=== PATIENT | female | born 1970 | race Caucasian/White ===

== ENCOUNTER 2020-02-22 12:52 | Emergency (ER) | payer OTHER, SELFPAY ==
[2020-02-22 12:56] VITALS: BP 113/70; PULSE 93; RESP 16; TEMP 36.3; O2SAT 100
--- NOTE | 2020-02-22 14:05 | ED.EAR ---
HPI - Ear Problem General Chief complaint: Ear Stated complaint: ear pain Time Seen by Provider: 02/22/20 13:06 Source: patient Mode of arrival: ambulatory Limitations: no limitations History of Present Illness HPI Narrative: This is a 49 year old female that presents to the ER for right ear pain since this morning. Also reports history of allergies with some post-nasal drip. Reports history of ear infections in the past and this feels similar. Denies fever or drainage from the ear. Related Data Allergies Allergy/AdvReac Type Severity Reaction Status Date / Time No Known Allergies Allergy Verified 02/22/20 12:59 Review of Systems Review of Systems: Narrative: CONSTITUTIONAL: Denies fever ENT: Reports rhinorrhea and otalgia All systems reviewed & are unremarkable except as noted in HPI and below PMFSH Past Medical History Medical History (Updated 02/22/20 @ 14:10 by Ирина Nair PA-C) History of seasonal allergies Social History Social History (Updated 02/22/20 @ 14:08 by Ирина Nair PA-C) Smoking status: Never smoker Gender identity (if verbalized by the patient): Female Exam Narrative: Exam Narrative: GENERAL: Well-appearing, well-nourished, and in no acute distress. HEAD: Normocephalic, atraumatic. EYES: EOMI. ENT: Nares clear, no rhinorrhea or epistaxis. Mucous membranes moist. Oropharynx without tonsillar hypertrophy exudate or other lesions. Bilateral TMs pearly russo non-bulging. Bilateral external auditory canals are normal NECK: Supple. No adenopathy or masses. CHEST: Clear to auscultation. No respiratory distress. No wheezes rales or rhonchi HEART: Regular rate and rhythm. No murmur heard. Normal peripheral pulses. EXTREMITIES: Normal range of motion. No edema. SKIN: Warm, dry, no rash. NEURO: No focal deficits. Alert and oriented x3. PSYCH: Normal mood and affect Course Vital Signs Vital signs: Vital Signs Temperature 97.3 F L 02/22/20 12:56 Pulse Rate 93 02/22/20 12:56 Respiratory Rate 16 02/22/20 12:56 Blood Pressure 113/70 02/22/20 12:56 Pulse Oximetry 100 02/22/20 12:56 Temperature 97.3 F L 02/22/20 12:56 Pulse Rate 93 02/22/20 12:56 Respiratory Rate 16 02/22/20 12:56 Blood Pressure 113/70 02/22/20 12:56 Pulse Oximetry 100 02/22/20 12:56 Medical Decision Making MDM Narrative Medical decision making narrative: Patient presents the emergency department for right ear pain since this morning. She is afebrile and nontoxic-appearing. At this time the external auditory canal and TM are normal on the right. Patient reports history of ear infections and that this feels similar to when her symptoms begin. I told her I could prescribe an antibiotic and she could start it for any worsening symptoms. Patient is stable and felt appropriate for further outpatient evaluation. She was given warnings to return to the ER Vital Signs Vital Signs: Vital Signs Temperature 97.3 F L 02/22/20 12:56 Pulse Rate 93 02/22/20 12:56 Respiratory Rate 16 02/22/20 12:56 Blood Pressure 113/70 02/22/20 12:56 Pulse Oximetry 100 02/22/20 12:56 Temperature 97.3 F L 02/22/20 12:56 Pulse Rate 93 02/22/20 12:56 Respiratory Rate 16 02/22/20 12:56 Blood Pressure 113/70 02/22/20 12:56 Pulse Oximetry 100 02/22/20 12:56 Critical Care Time Critical Care Time Critical Care Time: No Discharge Plan Discharge Clinical Impression: Acute pain of right ear Patient Disposition: Home, Self-Care Condition: Stable Instructions: Antibiotic Form, Earache (ED) Additional Instructions: Return to the emergency department for fever, redness and swelling of your ear, or any other concerns Remain well-hydrated, get plenty of rest. Take Tylenol or Motrin [id number] for pain as needed. Flonase for nasal congestion. Zyrtec for runny nose. Lozenges or Chloraseptic spray for sore throat. You may start the antibiotic for worsening pain in
== END 2020-02-22 14:20 | disposition home or self-care (01) ==
PROVIDERS: Emergency Provider Emergency Medicine
DX: H92.01 Otalgia, right ear (principal)
CPT/HCPCS: 99283

== ENCOUNTER 2022-12-17 09:35 | Emergency (ER) | payer OTHER, SELFPAY ==
[2022-12-17 10:05] VITALS: BP 136/74; PULSE 77; RESP 18; TEMP 36.9; O2SAT 100
--- NOTE | 2022-12-17 10:28 | ED.URI ---
HPI - URI/Sore Throat General Chief Complaint: Ear Stated Complaint: rt earache Time Seen by Provider: 12/17/22 10:28 Source: patient, RN notes reviewed and old records reviewed Mode of arrival: ambulatory Limitations: no limitations History of Present Illness HPI Narrative: 52-year-old female presents to the [facility] with complaints of right ear pain for several weeks. States that she takes some vitamins daily, no other treatment prior to arrival. Has an appointment with a new primary care provider coming. Patient states pain has been feels like there is a swooshing in her ear. Reports she has ear done just wants to make sure it is not infected Onset (ago): week(s) Related Data Home Medications Medication Instructions Recorded Confirmed No Home Medications 12/17/22 12/17/22 Allergies Allergy/AdvReac Type Severity Reaction Status Date / Time No Known Allergies Allergy Verified 12/17/22 10:14 Review of Systems Review of Systems: All systems reviewed & are unremarkable except as noted in HPI and below Constitutional: Constitutional: Reports no additional constitutional complaints Eyes: Eyes: Reports no additional eye complaints ENT: Reports as per HPI and Reports otalgia (Right) Cardiovascular: Cardiovascular: Reports no additional cardiovascular complaints, Denies chest pain and Denies dyspnea Respiratory: Respiratory: Reports no additional respiratory complaints, Denies chest congestion, Denies cough and Denies dyspnea Gastrointestinal: Gastrointestinal: Reports no additional gastrointestinal complaints, Denies abdominal pain, Denies nausea and Denies vomiting Musculoskeletal: Musculoskeletal: Reports no additional musculoskeletal complaints Integumentary/Breasts: Skin/Breast: Reports system reviewed and no additional complaints, except as docu Neurologic: Reports system reviewed and no additional complaints, except as documented Psychiatric: Psychiatric: Reports no additional psychiatric complaints Allergic/Immunologic: Allergic/Immunologic: Reports no additional allergic/immunologic complaints PMFSH Past Medical History Medical History History of seasonal allergies Social History Social History Smoking status: Never smoker Gender identity (if verbalized by the patient): Female Comments At the time of my signature, I reviewed and agree with the nursing past medical, surgical, social, and family history. There is no relevant family history pertinent to the patient complaint. Exam Const: General: cooperative, healthy appearing, comfortable, no acute distress, well developed, alert and well nourished Nutritional Appearance: well nourished Orientation/consciousness: patient oriented x3 Limitations: no limitations HENMT: Head: normal to inspection Ears: hearing grossly normal bilaterally, external ears normal, EAC's normal and TM abnormal with fluid behind the TM bilateral (Clear); not bulging and not erythematous Face/Nose/Sinus: Normal external nose present, Normal nares present, Normal nasal mucous membranes and turbinates present and normal facial exam Face and sinus: normal facial exam Mouth: Yes Normal oral and palatal mucosa present, Yes lip normal and Yes moist mucous membranes Throat: posterior oropharynx normal and uvula midline Eyes: General: appearance normal, both eyes and all related structures Alignment and Position: alignment normal Periorbital: periorbital findings normal Pupils: Equal, round and reactive pupils present EOM: EOMs intact bilaterally Neck: Neck: normal visual inspection, full ROM, no lymphadenopathy and no meningeal signs Chest: Chest palpation & inspection: normal inspection of the chest Resp: Effort & Inspection: normal respiratory effort and able to speak in complete sentences Auscultation: clear to auscultation bilaterally, no crackles, no rales
== END 2022-12-17 10:40 | disposition home or self-care (01) ==
PROVIDERS: Emergency Provider Nurse Practitioner
DX: H65.01 Acute serous otitis media, right ear (principal)
CPT/HCPCS: 99211; G0463

== ENCOUNTER 2022-12-20 08:31 | Emergency (ER) | payer OTHER, SELFPAY ==
--- NOTE | 2022-12-20 08:40 | ED.EAR ---
HPI - Ear Problem General Chief complaint: Ear Stated complaint: Rt Ear Irritation Time Seen by Provider: 12/20/22 08:40 Source: patient Mode of arrival: ambulatory Limitations: no limitations History of Present Illness HPI Narrative: Iza is a 52-year-old female patient presenting to the clinic with complaints of right ear pressure/pain, decreased hearing, and clicking noises. She reports symptoms have been going on for 2 weeks. Was seen in the urgent care on Monday and was told that her ear was not infected and she has fluid behind her ear. The [employer] offered steriod pack at that time and she states she already had some steroids at home (3 days of low dose per patient) so no prescription was given at that time. Returns today stating that her hearing is getting worse and she is having some clicking noises in her right ear as well as pressure. She was concerned that it may now be infected. Has been having nasal congestion and suffers from allergies. No fever, chills, headaches, visual changes, or dizziness. Reports that she has been taking Claritin but declined taking Flonase Related Data Allergies Allergy/AdvReac Type Severity Reaction Status Date / Time No Known Allergies Allergy Verified 12/17/22 10:14 Review of Systems Review of Systems: Pertinent positives per HPI. Patient denies any fever, chills, rash, headache, visual changes, dizziness, cough, runny nose, sore throat, shortness of breath, chest pain, palpitations, nausea, vomiting, diarrhea, constipation, abdominal pain, or any urinary issues. PMFSH Past Medical History Medical History History of seasonal allergies Social History Social History Smoking status: Never smoker Gender identity (if verbalized by the patient): Female Comments At the time of my signature, I reviewed and agree with the nursing past medical, surgical, social, and family history. There is no relevant family history pertinent to the patient complaint. Exam Narrative: General: Well-developed, well nourished, in no apparent distress Head: Normocephalic, atraumatic Eyes: Pupils equally round and reactive to light bilaterally, EOM intact, sclera and conjunctive clear, no discharge, lids normal Ears: Left TMs intact and clear, right TM intact, mild bulging, congested with fluid noted behind the TM, ear canals clear, no drainage, grossly hearing normal. Nose: Nares patent, clear discharge, no inflammation, no sinus tenderness. Mouth: Oropharynx without lesions or masses, good dentition, MMM. Neck: Supple, trachea midline, no enlargement of anterior or posterior cervical nodes, no thyroid masses or goiter palpable. Cardio: Regular rate and rhythm, s1 and s2 normal, no murmur appreciated. Resp: Clear to auscultation bilaterally anteriorly and posteriorly, no rhonchi, rales, wheezing or rubs Course Course Emergency Course: Portions of this record may have been created with voice recognition software. Level of Care: Express Care Visit Vital Signs Vital signs: Vital signs reviewed Medical Decision Making MDM Narrative Medical decision making narrative: At the time of visit patient is resting comfortably on the exam table. I suspect patient has serous otitis with right eustachian tube dysfunction. Patient is requesting antibiotics and explained that her condition does not warrant antibiotics at this time and explained the risk and benefits of taking antibiotics when they are not needed. Patient voiced understanding. Will send in prescription for prednisone 40 mg daily x5 days. Also encouraged to use [id number] Flonase along with the [id number] antihistamine to help improve her symptoms. Supportive measures were discussed with the patient she voiced understanding discharge instructions and agrees to treatment plan. Differential Diagnosi
[2022-12-20 08:41] VITALS: BP 122/71; PULSE 74; RESP 16; TEMP 36.5; O2SAT 99
== END 2022-12-20 08:55 | disposition home or self-care (01) ==
PROVIDERS: Emergency Provider Nurse Practitioner Family
DX: H69.91 Unspecified Eustachian tube disorder, right ear (principal); H91.91 Unspecified hearing loss, right ear; H65.01 Acute serous otitis media, right ear
CPT/HCPCS: 99213; G0463

== ENCOUNTER 2024-01-26 13:16 | Outpatient (CLI) | payer OTHER, SELFPAY ==
--- NOTE | ~2024-01-26 | MM_ITS ---
EXAMINATION: MM screening patsy BI w rubin HISTORY: Screening TECHNIQUE: Craniocaudal and mediolateral oblique 3-D tomosynthesis images were obtained and synthetic 2-D images were generated. CAD analysis was submitted and interpreted. COMPARISON: No prior mammogram is available for comparison at this institution. BREAST PARENCHYMAL COMPOSITION: Dense: The breasts are extremely dense, which lowers the sensitivity of mammography. FINDINGS: There is no evidence of suspicious mass, calcification, or architectural distortion to sugg est malignancy in either breast. There has been no suspicious interval change. IMPRESSION: 1. No mammographic evidence of malignancy. 2. Recommend routine screening mammography in one year. BI-RADS Category 1: Negative Reviewed, dictated and finalized at location B.
== END 2024-01-26 13:17 | disposition home or self-care (01) ==
LOC: CHSIMG 13:18
DX: Z12.31 Encounter for screening mammogram for malignant neoplasm of breast (principal)
CPT/HCPCS: 77063; 77067

== ENCOUNTER 2025-04-11 02:28 | Emergency (ER) | payer OTHER, SELFPAY ==
[2025-04-11] VITALS (10 sets, daily range): BP systolic 113–137; BP diastolic 53–99; PULSE 76–109; RESP 15–22; TEMP 36.7–36.9; O2SAT 98–100
--- NOTE | ~2025-04-11 | CT_ITS ---
EXAMINATION: CT brain wo con DATE: 04/11/2025 06:19 INDICATION: Seizure TECHNIQUE: Computed tomography (CT) of the head was performed without intravenous contrast. The dose-length product was 681.00 mGy-cm. COMPARISON: None FINDINGS: No intraconal mass effect or hemorrhage. Calvarial structures appear intact. IMPRESSION: 1. No gross acute intracranial process. 2. With new onset or refractory seizure disorder, correlation with seizure protocol brain MRI recommended for optimal evaluation. Reviewed, dictated and finalized at location A. IMPRESSION: 1. No gross acute intracranial process. 2. With new onset or refractory seizure disorder, correlation with seizure prot ocol brain MRI recommended for optimal evaluation.
--- NOTE | ~2025-04-11 | CT_ITS ---
EXAM/PROCEDURE: CT facial & cervical spine wo HISTORY: small lac bridge nose; seizure COMPARISON: None available. TECHNIQUE: CT of the cervical spine and facial bones performed FINDINGS: No fracture lucency C1-C7. No traumatic malalignment. No significant hematoma or severe soft tissue swelling seen. The facial bones appear intact. IMPRESSION: No acute findings. No fracture lucency identified C1-C7 or in the facial bones. Reviewed, dictated and finalized at location A. 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
--- NOTE | 2025-04-11 02:14 | ECG_ITS ---
Test Date: 2025-04-11 02:23:11 Measurements Intervals [place] Rate: 98 P: 70 AK: 166 QRS: 66 QRSD: 83 T: 41 QT: 339 QTc: 435 Interpretive Statements SINUS RHYTHM MODERATE ST DEPRESSION [0.05+ mV ST DEPRESSION] ABNORMAL ECG No previous ECG available for comparison Electronically Signed On 04-11-2025 13:15:16 [employer] by Kal Huizar M.D.
[2025-04-11 02:22] LABS: Hematocrit 44.1 % (37.0-47.0); Hemoglobin 14.6 g/dL (12.0-15.0); Immature Granulocyte Percent A 0.1 % (0-0.5); Lymphocytes Absolute Auto 3.17 K/mm3 (0.9-3.2); Mean Corpuscular HGB Conc 33.1 g/dl (32-36); Mean Corpuscular Hemoglobin 30.7 pg (26-34); Mean Corpuscular Volume 92.6 fl (80-100); Nucleated Red Blood Cells Absolute Auto 0.000 K/mm3 (0.0-0.012); Nucleated Red Blood Cells Perc 0.0 % (0.0-0.2); Platelet Count Result 235 k/mm3 (150-375); Red Blood Count 4.76 M/mm3 (4.2-5.4); White Blood Count 6.9 K/mm3 (4.5-10.0)
[2025-04-11 02:33] LABS: INR 0.9; Prothrombin Time 12.4 Seconds (11.1-14.7)
[2025-04-11 02:34] LABS: Partial Thromboplastin Time 24.6 Seconds (22.3-36.8)
[2025-04-11 02:37] LABS: Alanine Aminotransferase 23 U/L (6-35); Albumin Level 4.6 g/dL (3.5-5.1); Alkaline Phosphatase 86 U/L (38-126); Anion Gap 14 mmol/L (4-12); Aspartate Amino Transferase 30 U/L (14-36); Bilirubin,Total 0.4 mg/dL (0.2-1.3); Blood Urea Nitrogen 16 mg/dL (7-17); Calcium 9.2 mg/dL (8.4-10.2); Carbon Dioxide 22 mmol/L (22-30); Chloride 103 mmol/L (98-107); Estimated Glomerular Filt Rate 45; Glucose 140 mg/dL (65-110); Potassium 3.5 mmol/L (3.4-5.0); Sodium 139 mmol/L (137-145); Total Protein 7.8 g/dL (6.3-8.2)
--- NOTE | 2025-04-11 03:08 | PC.NURSE ---
Pt refused CT scans of head, neck, and facial bones. Pt states I know why I seized, I'm hypoglycemic. This RN tried to explain to pt that she has a hematoma to her forehead and a lac to the bridge of her nose and there could be a bleed or a fracture. Pt still refusing. Dr. Dougherty aware.
[2025-04-11] MEDS: SODIUM CHLORIDE 0.9% IV 1,000 ML 999 ML IV CONT (03:56)
[2025-04-11 04:09] LABS: Add Urine Microscopic? YES; Appearance Urine Cloudy (Clear); Glucose Urine UA Negative (Negative); Leukocyte Esterase Ur Trace LEU/UL (Negative); Need Manual Microscopic Reviewed; Nitrate Urine Negative (Negative); Specific Grav Ur 1.017 (1.001-1.035)
[2025-04-11 04:24] LABS: Cannabinoid Screen Urine Positive (Negative)
--- NOTE | 2025-04-11 06:47 | ED.SEIZURE ---
HPI - Seizure General Chief Complaint: Seizure Stated Complaint: possible sz, altered Time Seen by Provider: 04/11/25 06:30 Source: patient and RN notes reviewed Mode of arrival: EMS Limitations: no limitations History of Present Illness HPI Narrative: Patient presents with suspected seizure. Her son heard a commotion and found her on the ground. She had been incontinent of urine and in the kitchen/near a jar of honey. Initially confused/postictal with POC glucose 153mg/dL. Patient reports that she has a history of reactive hypoglycemia /hypoglycemic seizures. No history of diabetes mellitus. She notes stressors recently, as a single mom in the midst of 2 court cases, one involving her son and one related to her ex- paying too much money in child support which she has to pay back. She also reports that she is perimenopausal, going on approximately 1 year w/o menstrual cycle. 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 Denies alcohol. No new meds. Reports her sleep is fine. She reports her last episode when this happened was many years ago when she was her now teenager. Seizure had been attributed to hormonal changes per patient although she states she was placed on an antiseizure medication but can't recall which. That neurolgosit was in [place] many years ago. She also says that she had a seizure when she was 12 or 13 years old. Has a lac on bridge of nose where glasses were. PCP Juliann. 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 Says she lost 16 lbs. Related Data Allergies Allergy/AdvReac Type Severity Reaction Status Date / Time No Known Allergies Allergy Verified 12/17/22 10:14 PMF Past Medical History Medical History History of seasonal allergies Social History Social History Smoking status: Never smoker Living arrangements: with family Gender identity (if verbalized by the patient): Female Exam Narrative: GENERAL: Well-appearing, well-nourished, and in no acute distress. HEAD: Normocephalic, atraumatic. EYES: Non injected, non icteric. No photophobia. ENT: Nares clear, no rhinorrhea or epistaxis. Gross auditory acuity intact. Superficial laceration bridge of nose. NECK: Supple. No meningismus. CHEST: Speaking in full sentences. No respiratory distress. HEART: Regular rate and rhythm. . ABDOMEN: No rigidity or guarding. Not peritoneal EXTREMITIES: Normal range of motion. No lower extremity edema. SKIN: Warm, dry, no rash. NEURO: No focal deficits. Alert and oriented. Answering questions. Following commands. Normal speech without aphasia or dysarthria. No abnormal movements appreciated. PSYCH: Congruent mood and affect. Course Vital Signs Vital signs: Vital Signs Temperature 98.1 F 04/11/25 02:09 Pulse Rate 109 H 04/11/25 02:09 Respiratory Rate 18 04/11/25 02:09 Blood Pressure 137/68 04/11/25 02:09 Pulse Oximetry 99 04/11/25 02:09 Oxygen Delivery Room Air 04/11/25 02:09 Temperature 98.4 F 04/11/25 07:31 Pulse Rate 82 04/11/25 08:16 Respiratory Rate 15 04/11/25 08:16 Blood Pressure 130/63 04/11/25 08:16 Pulse Oximetry 98 04/11/25 08:16 Oxygen Delivery Room Air 04/11/25 02:36 MDM - Seizure MDM Narrative Medical decision making narrative: Patient presents after a suspected seizure. Found confused/postictal and incontinent of urine after son heard a commotion and found her on the ground trying to get to honey. Reports a history of reactive hypoglycemia; states she prevoiusly had a seizure more than a decade ago when she was . Reports it was attributed to hormonal changes at the time but that she had been put on antisizure medication. Also reprots a seizure when she was 12 or 13 years old. In the emergency department she is afebrile vital signs notable for tachycardia. CBC only with mild abnormalities on the differential. Lactic acid initially 8. Repeat has normalized, even more concerning for seizure. Patient has some abnormalities on her urinalysis however she is without dysuria hematuria urgency or frequency. In fact, this was a sample obtained from bed [facility] and she reports that she had also stooled in this. Will defer treating but will order culture. She has a very mild hyperglycemia with a slight anion gap but no acidosis. Her creatinine appears elevated. No baseline for comparison but likely VARGHESE. She had been given fluids. UDS positive for cannabinoids. While it certainly is worth investigating the relationship between patient's reported reactive hypoglycemia, she notably was not hypoglycemic at the time of EMS arrival. Possibly catecholamine response to release stores but I do defer further investigation and discussion to specialists. Notably, advise patient follow up with her PCP/beam dyer operator/and see neurology. Patient was informed in discharge paperwork of my obligation to inform her that she is not to drive until cleared by neurology. Prescribed short course of antiseizure medication. Provided referral contact infor for neurology. Differential Diagnosis Differential diagnosis: Likely intractable seizure disorder, focal seizure, generalized seizure, new onset seizure, epileptic seizure and other (reactive hypoglycemia; nonepileptiform /psuedoseizures) Lab Data Attestation: I reviewed the patient's lab results. 04/11/25 02:15 04/11/25 02:15 Labs: Lab Results 04/11/25 04/11/25 04/11/25 Range/Units 02:08 02:15 03:48 WBC 6.9 (4.5-10.0) K/mm3 RBC 4.76 (4.2-5.4) M/mm3 Hgb 14.6 (12.0-15.0) g/dL Hct 44.1 (37.0-47.0) % MCV 92.6 (80-100) fl MCH 30.7 (26-34) pg MCHC 33.1 (32-36) g/dl RDW 11.9 (11.5-14.5) % Plt Count 235 (150-375) k/mm3 MPV 10.3 (7.4-10.4) fl Immature Gran % (Auto) 0.1 (0-0.5) % Neut % (Auto) 46.1 (45.5-73.1) % Lymph % (Auto) 45.7 H (18.3-44.2) % [place] % (Auto) 5.5 (2.6-8.5) % Eos % (Auto) 2.0 (0-4.4) % Baso % (Auto) 0.6 (0.2-1.2) % Lymph # (Auto) 3.17 (0.9-3.2) K/mm3 [place] # (Auto) 0.4 (0.1-0.6) K/mm3 Eos # (Auto) 0.1 (0-0.3) K/mm3 Baso # (Auto) 0.0 (0.0-0.1) K/mm3 Abs Immat Gran (auto) 0.01 (0.00-0.031) K/mm3 Absolute Neuts (auto) 3.2 (1.3-6.7) K/mm3 Absolute Nucleated RBC 0.000 (0.0-0.012) K/mm3 Nucleated RBC % 0.0 (0.0-0.2) % PT 12.4 (11.1-14.7) Seconds INR 0.9 APTT 24.6 (22.3-36.8) Seconds Sodium 139 (137-145) mmol/L Potassium 3.5 (3.4-5.0) mmol/L Chloride 103 (98-107) mmol/L Carbon Dioxide 22 (22-30) mmol/L Anion Gap 14 H (4-12) mmol/L BUN 16 (7-17) mg/dL Creatinine 1.25 H (0.7-1.0) mg/dL Estim Creat Clear Calc Not Reportable Estimated GFR 45 L (59 - ) Glucose 140 H (65-110) mg/dL POC Capillary Glucose 155 H (65-105) mg/dl Lactic Acid 8.0 H* (0.7-2.0) mmol/L Calcium 9.2 (8.4-10.2) mg/dL Total Bilirubin 0.4 (0.2-1.3) mg/dL AST 30 (14-36) U/L ALT 23 (6-35) U/L Alkaline Phosphatase 86 (38-126) U/L Total Protein 7.8 (6.3-8.2) g/dL Albumin 4.6 (3.5-5.1) g/dL Urine Color Yellow (Yellow) Urine Appearance Cloudy H (Clear) Urine pH 5.0 (5.0-9.0) Ur Specific [place] 1.017 (1.001-1.035) Urine Protein 1+ H (Negative) mg/dL Urine Glucose (UA) Negative (Negative) mg/dL Urine Ketones Trace H (Negative) mg/dL Ur Blood (Man) Negative (Negative) Urine Nitrate Negative (Negative) Urine Bilirubin Negative (Negative) Urine Urobilinogen 0.2 (<2.0) mg/dL Add Ur Microanalysis Reviewed Leukocyte Esterase Rfl Trace H (Negative) SOFIE/UL Urine RBC 11-20 H (0-2) /hpf Urine WBC 0-5 (0-3) /hpf Ur Squamous Epith Cells Few (Few) /hpf Urine Bacteria 4+ H /hpf Urine Casts 3-5 Urine Opiates Screen Negative (Negative) Urine Methadone Screen Negative (Negative) Ur Barbiturates Screen Negative (Negative) Ur Phencyclidine Scrn Negative (Negative) Ur Amphetamine Screen Negative (Negative) U Benzodiazepines Scrn Negative (Negative) Urine Cocaine Screen Negative (Negative) U Cannabinoids Screen Positive A (Negative) 04/11/25 Range/Units 05:46 WBC (4.5-10.0) K/mm3 RBC (4.2-5.4) M/mm3 Hgb (12.0-15.0) g/dL Hct (37.0-47.0) % MCV (80-100) fl MCH (26-34) pg MCHC (32-36) g/dl RDW (11.5-14.5) % Plt Count (150-375) k/mm3 MPV (7.4-10.4) fl Immature Gran % (Auto) (0-0.5) % Neut % (Auto) (45.5-73.1) % Lymph % (Auto) (18.3-44.2) % [place] % (Auto) (2.6-8.5) % Eos % (Auto) (0-4.4) % Baso % (Auto) (0.2-1.2) % Lymph # (Auto) (0.9-3.2) K/mm3 [place] # (Auto) (0.1-0.6) K/mm3 Eos # (Auto) (0-0.3) K/mm3 Baso # (Auto) (0.0-0.1) K/mm3 Abs Immat Gran (auto) (0.00-0.031) K/mm3 Absolute Neuts (auto) (1.3-6.7) K/mm3 Absolute Nucleated RBC (0.0-0.012) K/mm3 Nucleated RBC % (0.0-0.2) % PT (11.1-14.7) Seconds INR APTT (22.3-36.8) Seconds Sodium (137-145) mmol/L Potassium (3.4-5.0) mmol/L Chloride (98-107) mmol/L Carbon Dioxide (22-30) mmol/L Anion Gap (4-12) mmol/L BUN (7-17) mg/dL Creatinine (0.7-1.0) mg/dL Estim Creat Clear Calc Estimated GFR (59 - ) Glucose (65-110) mg/dL POC Capillary Glucose (65-105) mg/dl Lactic Acid 1.9 (0.7-2.0) mmol/L Calcium (8.4-10.2) mg/dL Total Bilirubin (0.2-1.3) mg/dL AST (14-36) U/L ALT (6-35) U/L Alkaline Phosphatase (38-126) U/L Total Protein (6.3-8.2) g/dL Albumin (3.5-5.1) g/dL Urine Color (Yellow) Urine Appearance (Clear) Urine pH (5.0-9.0) Ur Specific [place] (1.001-1.035) Urine Protein (Negative) mg/dL Urine Glucose (UA) (Negative) mg/dL Urine Ketones (Negative) mg/dL Ur Blood (Man) (Negative) Urine Nitrate (Negative) Urine Bilirubin (Negative) Urine Urobilinogen (<2.0) mg/dL Add Ur Microanalysis Leukocyte Esterase Rfl (Negative) SOFIE/UL Urine RBC (0-2) /hpf Urine WBC (0-3) /hpf Ur Squamous Epith Cells (Few) /hpf Urine Bacteria /hpf Urine Casts Urine Opiates Screen (Negative) Urine Methadone Screen (Negative) Ur Barbiturates Screen (Negative) Ur Phencyclidine Scrn (Negative) Ur Amphetamine Screen (Negative) U Benzodiazepines Scrn (Negative) Urine Cocaine Screen (Negative) U Cannabinoids Screen (Negative) Imaging Data Radiologist's impression: Impressions Head CT 04/11/25 08:12 IMPRESSION: 1. No gross acute intracranial process. 2. With new onset or refractory seizure disorder, correlation with seizure protocol brain MRI recommended for optimal evaluation. Head/Cervical Spine/Facial Bones CT 04/11/25 08:14 IMPRESSION: No acute findings. No fracture lucency identified C1-C7 or in the facial bones. ECG Data EKG #1: Attestation: I personally reviewed and interpreted this ECG as follows: ECG completion date: 04/11/25 ECG completion time: 02:23 Interpretation: Normal sinus rhythm at a rate of 98 beats per minute. NJ interval 166. QRS 83. QT/QTC 339/435. Good R-wave progression across the precordial leads. No T-wave inversions. Normal axis. Discharge Plan Discharge Clinical Impression: Seizure, Abnormal urinalysis, H/O reactive hypoglycemia, Hyperglycemia, VARGHESE (acute kidney injury), Marijuana use Patient Disposition: Home Condition: Stable Instructions: Antibiotic Form, Acute Kidney Injury (DC), Nondiabetic Hyperglycemia (ED), New-Onset Seizure in Adults (ED) Additional Instructions: From CT interpretation: With new onset or refractory seizure disorder, correlation with seizure protocol brain MRI recommended for optimal evaluation. I am obligated as a physician to notify you that, given you have likely had a seizure, you are not to drive until you are cleared by a neurologist. I am also prescribing an antiseizure medication. Please follow up with your Primary care provider who may be able to start some of the work up (e.g. outpatient MRI, possibly outpatient EEG, etc.) versus following up with either of the neurologists listed below or an alternative neurologist including the one you saw in [place] several years ago if that is still an option. Follow up with your beam dyer operator for your concerns of this being related to reactive hypoglycemia. Return to the ED if any new/worsening symptoms. Patient Language: Nigerien Prescriptions: New levetiracetam [Keppra] 500 mg tablet 500 mg PO BID 30 Days Qty: 60 0RF No Action prednisone 20 mg tablet 40 mg PO DAILY 5 Days Qty: 10 0RF Follow-up/Referrals: Bishop,Juliann [Other] Brandan Westbrook MD [Physician, Neurology] Jenniffer Nair MD [Physician, Neurology] Stand Alone Forms: Work/School Release IP Time of Disposition: 08:35
== END 2025-04-11 09:13 | disposition home or self-care (01) ==
PROVIDERS: Emergency Provider Student in an Organized Health Care Education/Training Program
DX: R56.9 Unspecified convulsions (principal); N17.9 Acute kidney failure, unspecified; R73.9 Hyperglycemia, unspecified; R82.998 Other abnormal findings in urine; F12.90 Cannabis use, unspecified, uncomplicated; E16.1 Other hypoglycemia
CPT/HCPCS: 36415; 70450; 70486; 72125; 80053; 80307; 81001; 82948; 83605; 85025; 85610; 85730; 87086; 93005; 96360; 99284; J7030

== ENCOUNTER 2025-04-20 23:39 | Emergency (ER) | payer OTHER, SELFPAY ==
--- OUTSIDE RECORDS SUMMARY | 2025-04-20 23:41 | XMS_ITS | Clinical Summary ---
Author Organization [facility] [address] Address [address] [place] [address] Care Team Providers Care Reference Archivist Name Role Phone Juliann Alas NP Primary Care Provider Allergies No known active allergies Medications levETIRAcetam (KEPPRA) 500 mg tablet Take 1 tablet (500 mg total) by mouth 2 (two) times a day 04/16/20 25 Discontinu ed(Therapy completed) Active Problems Problem Noted Date Diagnosed Date VARGHESE (acute kidney injury) 04/16/2025 Hyperglycemia 04/16/2025 Marijuana use 04/16/2025 Seizure 04/16/2025 Spell of dizziness 02/22/2024 Encounters Date Type Department Care Team Description 04/16/2025 3:00 PM CEMENT OR CONCRETE FINISHING SUPERVISOR Office Visit [facility] Family Medicine [address] [facility] [address] [place] [phone] Juliann Alas NP Annual physical exam (Primary Dx); Seizure (HCC); H/O reactive hypoglycemia; Menstrual changes; Symptomatic spider varicose vein; Hyperthyroidism 01/30/2025 Results Follow-Up [facility] Family Medicine [address] [facility] [address] [place] [address] Juliann Alas NP Comprehensive metabolic panel, Lipid panel, Thyroid Function [place] from Last 3 Months Immunizations Immunization Administration Dates Next Due Hep B Vaccine 09/03/2012,04/02/2012,12/08/2011 Influenza, Unspecified 04/16/2025(Deferr ed: Patient Refused),08/11/2023(Deferred: Patient Refused),02/26/2022(Deferred: Patient Refused) MMR 12/22/2011 Td, adsorbed 04/23/1996 Tdap 12/08/2011 Surgical History Surgery Date Site/Laterality Comments SECTION Medical History Medical History Date Comments Seizures (HCC) 04/11 Reactive hypoglycemia 2010 Family History Medical History Relation Name Comments Thyroid disease Mother Sepideh Torres Relation Name Status Comments Mother Sepideh Torres Alive Social History Tobacco Use Types Packs/Day Years Used Date Smoking Tobacco: Former Cigarettes Passive Smoke Exposure: Never Smokeless Tobacco: Never Tobacco Cessation:Counseling Given: Not Answered Comments:I quit 30 years ago PHQ-2 Answer Date Recorded PHQ-2 Total Score (If total score is 3 or more points, staff should administer the PHQ-9) 0 04/16/2025 Comments Unknown Sex and Gender Information Value Date Recorded Sex Assigned at Not on file Legal Sex Female 12:33 AM CEMENT OR CONCRETE FINISHING SUPERVISOR Gender Identity Not on file Sexual Orientation Not on file Last Filed Vital Signs Vital Sign Reading Time Taken Comments Blood Pressure 130/82 04/16/2025 3:07 PM CEMENT OR CONCRETE FINISHING SUPERVISOR Pulse 74 04/16/2025 3:07 PM CEMENT OR CONCRETE FINISHING SUPERVISOR Temperature 36.8 C (98.2 F) 02/22/2024 2:38 PM CDT Respiratory Rate 20 04/16/2025 3:07 PM CEMENT OR CONCRETE FINISHING SUPERVISOR Oxygen Saturation 99% 04/16/2025 3:07 PM CEMENT OR CONCRETE FINISHING SUPERVISOR Inhaled Oxygen Concentration - - Weight 90.4 kg (199 lb 3.2 oz) 04/16/2025 3:07 P M CEMENT OR CONCRETE FINISHING SUPERVISOR Height 179.1 cm (5' 10.51) 04/16/2025 3:[address] Body Mass Index 28.17 04/16/2025 3:07 PM CEMENT OR CONCRETE FINISHING SUPERVISOR Plan of Treatment Health Maintenance Due Date Last Done Comments Cervical Cancer Screening 1970 Hepatitis C Screening 1970 Zoster Vaccine (1 of 2) 2021 DTaP/Tdap/Td Vaccine (2 - Td or Tdap) 12/07/2021 12/08/2011, 04/23/1996 Breast Cancer Screening-Mammogram 01/29/2025 01/30/2024, 11/01/2013 Influenza Vaccine (#1) 2025 Postp oned from 01/27/2025 (Patient declined, but will receive in the future) Depression Screening 04/16/2026 04/16/2025, 08/11/2023 Regular Well Visit/Exam 18-64 04/16/2026, 12/29/2023 Covid-19 Vaccine (3 - 2024-2 6 season) 2026 02/08/2021, 01/15/2021 Postponed from 01/27/2025 (Patient declined, but will receive in the future) Colon Cancer Screening-DNA Stool 01/06/2027 01/07/2024 Hepatitis B Screening Completed 09/03/2012 , 04/02/2012, 12/08/2011 Pneumococcal vaccine <65 Aged Out No longer eligible based on patient's age to complete this topic Procedures Procedure Name Priority Date/Time Associated Diagnosis Comments THYROID FUNCTION CASCADE Routine 01/29/2025 10:55 AM CDT Annual physical exam LIPID PANEL Routine 01/29/2025 10:55 AM CDT Annual physical exam COMPREHENSIVE METABOLIC PANEL Routine 01/29/2025 10:55 AM CDT Annual physical exam SCREENING MAMMOGRAM BILATERAL W MÓNICA Schedule Routine, Read Routine (OP Routine) 01/30/2024 3:15 PM CDT Encounter for screening mammogram for breast cancer STOOL DNA COLOGUARD Routine 01/07/2024 10:00 AM CDT Screening for malignant neoplasm of colon from Last 3 Months or Most Recently Relevant to Health Maintenance Results * Thyroid Function [place] (01/29/2025 10:55 AM CDT) TSH 3.17 mIU/L [facility] Comment: Reference Range > or = 20 Years 0.40-4.50 Ranges First trimester 0.26-2.66 Second trimester 0.55-2.73 Third trimester 0.43-2.91 Blood 01/29/2025 10:5 5 AM CDT 01/29/2025 10:55 AM CDT Narrative [facility] - 01/30/2025 8:32 AM CDT FASTING:YES FASTING: YES Juliann Alas POLISHER NUMERAL LAB BLOOD ORDERABLES F inal Result [facility] [address] [phone] * (ABNORMAL) Lipid panel (01/29/2025 10:55 AM CDT) Cholesterol 240(H) <200 mg/dL [facility] HDL 57 > OR = 50 mg/dL [facility] Triglycerides 229(H) <150 mg/dL [facility] Comment: If a non-fasting specimen was collected, consider repeat triglyceride testing on a fasting specimen if clinically indicated. Smitha et al. J. of Clin. Lipidol. 2015;9:129-169. LDL 146(H) mg/dL (calc) [facility] Comment: Reference range: <100 Desirable range <100 mg/dL for primary prevention; <70 mg/dL for patients with CHD or diabetic patients with > or = 2 CHD risk factors. LDL-C is now calculated using the Wyatt-Tejeda calculation, which is a validated novel method providing better accuracy than the Friedewald equation in the estimation of LDL-C. Wyatt SS et al. LANE. 2013;310(19): 7718-2820 (http://education.Haivision.[employer] [place]/faq/QOV059) Chol/HDL ratio 4.2 <5.0 (calc) [facility] Non-HDL, (LDL+VLDL) 183(H) <130 mg/dL (calc) [facility] Comment: For patients with diabetes plus 1 major ASCVD risk factor, treating to a non-HDL-C goal of <100 mg/dL (LDL-C of <70 mg/dL) is considered a therapeutic option. Blood 01/29/2025 10:5 5 AM CDT 01/29/2025 10:55 AM CDT Narrative [facility] - 01/30/2025 8:32 AM CDT FASTING:YES FASTING: YES Juliann Alas POLISHER NUMERAL LAB BLOOD ORDERABLES F inal Result [facility] [address] [address] [phone] * (ABNORMAL) Comprehensive metabolic panel (01/29/2025 10:55 AM CDT) Pathologist [facility] Glucose 89 65 - 99 mg/dL [facility] Comment: Fasting reference interval BUN 17 7 - 25 mg/dL [facility] Creatinine 1.06(H) 0.50 - 1.03 mg/dL [facility] eGFR 63 > OR = 60 mL/min/1.7 3m2 [facility] BUN/creat ratio 16 6 - 22 (calc) [facility] Sodium 139 135 - 146 mmol/L [facility] Potassium, pl 4.0 3.5 - 5.3 mmol/L [facility] Chloride 101 98 - 110 mmol/L [facility] CO2 33(H) 20 - 32 mmol/L [facility] Calcium 8.9 8.6 - 10.4 mg/dL [facility] Protein, sr 6.8 6.1 - 8.1 g/dL [facility] Albumin 4.2 3.6 - 5.1 g/dL [facility] GLOBULIN 2.6 1.9 - 3.7 g/dL (calc) [facility] Alb/glob ratio 1.6 1.0 - 2.5 (calc) [facility] Bilirubin, total 0.3 0.2 - 1.2 mg/dL [facility] Alk phos 81 37 - 153 U/L [facility] AST 16 10 - 35 U/L [facility] ALT (SGPT) 12 6 - 29 U/L [facility] Blood 01/29/2025 10:5 5 AM CDT 01/29/2025 10:55 AM CDT Narrative [facility] - 01/30/2025 8:32 AM CDT FASTING:YES FASTING: YES Juliann Alas NP LAB BLOOD ORDERABLES F inal Result [facility] [address] [phone] * SCREENING MAMMOGRAM BILATERAL W MÓNICA (01/30/2024 3:15 PM CDT) Anatomical Region Laterality Modality Breast Bilateral Mammography Juliann Alas NP IMG MAMMO PROCEDURES F inal Result * Stool DNA - Cologuard (01/07/2024 10:00 AM CDT) Stool DNA - Cologuard Negative Negative [facility] (CLIA #:[id number]) Comment: NEGATIVE TEST RESULT. A negative Cologuard result indicates a low likelihood that a colorectal cancer (CRC) or advanced adenoma (adenomatous polyps with more advanced pre-malignant features) is present. The chance that a person with a negative Cologuard test has a colorectal cancer is less than 1 in 1500 (negative predictive value >99.9%) or has an advanced adenoma is less than 5.3% (negative predictive value 94.7%). These data are based on a prospective cross-sectional study of 10,000 individuals at average risk for colorectal cancer who were screened with both Cologuard and colonoscopy. (Katlyn Peralta al, N Engl J Med 2014;370(14):4193-3303) The normal value (reference range) for this assay is negative. COLOGUARD RE-SCREENING RECOMMENDATION: Periodic colorectal cancer screening is an important part of preventive healthcare for asymptomatic individuals at average risk for colorectal cancer. Following a negative Cologuard result, the Canadian Cancer Society and U.S. Multi-Society Task Force screening guidelines recommend a Cologuard re-screening interval of 3 years. References: Canadian Cancer Society Guideline for Colorectal Cancer Screening: https://www.cancer.org/cancer/ymbxq-dbdzwx-ructgh/oizczcgrp-nyjjkaykz-lwkahku/ac s-rec ommendations.html.; Juanito DK, Indira CR, Shavon HernandezK, Colorectal Cancer Screening: Recommendations for Physicians and Patients from the U.S. Multi-Society Task Force on Colorectal Cancer Screening , Am J Gastroenterology 2017; 112:1659-5200. TEST DESCRIPTION: Composite algorithmic analysis of stool DNA-biomarkers with hemoglobin immunoassay. Quantitative values of individual biomarkers are not reportable and are not associated with individual biomarker result reference ranges. Cologuard is intended for colorectal cancer screening of adults of either sex, 45 years or older, who are at average-risk for colorectal cancer (CRC). Cologuard has been approved for use by the U.S. FDA. The performance of Cologuard was established in a cross sectional study of average-risk adults aged 50-84. Cologuard performance in patients ages 45 to 49 years was estimated by sub-group analysis of near-age groups. Colonoscopies performed for a positive result may find as the most clinically significant lesion: colorectal cancer [4.0%], advanced adenoma (including sessile serrated polyps greater than or equal to 1cm diameter) [20%] or non- advanced adenoma [31%]; or no colorectal neoplasia [45%]. These estimates are derived from a prospective cross-sectional screening study of 10,000 individuals at average risk for colorectal cancer who were screened with both Cologuard and colonoscopy. (Katlyn Peralta al, N Engl J Med 2014;370(14):2145-2938.) Cologuard may produce a false negative or false positive result (no colorectal cancer or precancerous polyp present at colonoscopy follow up). A negative Cologuard test result does not guarantee the absence of CRC or advanced adenoma (pre-cancer). The current Cologuard screening interval is every 3 years. (Canadian Cancer Society and U.S. Multi-Society Task Force). Cologuard performance data in a 10,000 patient pivotal study using colonoscopy as the reference method can be accessed at the following location: www.[employer] [place]/results. Additional description of the Cologuard test process, warnings and precautions can be found at www.ImageBrief.com. Stool 01/07/2024 10:0 0 AM CDT 01/09/2024 9:39 AM CDT Juliann Alas NP LAB BODY FLUIDS AND ST OOLS ORDERABLES Final Result [facility] (CLIA #:[id number]) [place] [address] from Last 3 Months or Most Recently Relevant to Health Maintenance Insurance [facility] [employer] HMO [facility] HMO/POS Care Teams Reference Archivist Relationship Specialty Start Date End Date Juliann Alas NP [address] [place] [address] PCP - General Family Medicine 08/11/23
[2025-04-20 23:45] VITALS: BP 145/66; PULSE 89; RESP 16; O2SAT 100
[2025-04-21 00:12] VITALS: TEMP 36.8
--- NOTE | 2025-04-21 00:16 | ED.RECABL ---
HPI - Recheck/Abnormal Lab/Rx General Chief Complaint: Recheck/Abnormal Lab/Rx Stated Complaint: low blood sugar Time Seen by Provider: 04/20/25 23:58 History of Present Illness HPI narrative: 54-year-old female presenting to the emergency department today after she felt like she was having a hypoglycemic episode at home. Patient has been dealing with intermittent hypoglycemic episodes for quite some time and even had a seizure from hypoglycemic events several weeks ago. Patient states she recognized the symptoms and felt diaphoretic, having palpitations and shakes. She is quickly drank some juice and felt much better. Does not feel back to 100% baseline but did not have a true seizure or epileptic activity. Patient Does not endorse any headache, fever, chills, shortness of breath, abdominal pain. patient states she has had similar episodes in the past and thinks her endocrine system or hormonal system is off balance. She does have an coverstitch machine operator that she has not seen in over a year. Does not check her blood sugars at home. Not diabetic to her knowledge. Patient expressed frustration at her primary doctor is not working her up seriously with these complaints and did not even order an A1c during recent visit. Patient presently is drinking soda and feeling better. Ambulatory without any difficulty. No neurological complaints or deficits. No traumatic injuries. Related Data Allergies Allergy/AdvReac Type Severity Reaction Status Date / Time No Known Allergies Allergy Verified 04/20/25 23:40 Review of Systems Review of Systems: As [facility] Past Medical History Medical History History of seasonal allergies Social History Social History Smoking status: Never smoker Living arrangements: with family Gender identity (if verbalized by the patient): Female Exam Narrative: GENERAL: [Well-appearing, well-nourished, and in no acute distress.] HEAD: [Normocephalic, atraumatic.] EYES: [PERRLA and EOMI.] ENT: Nares clear, no rhinorrhea or epistaxis. Mucous membranes moist. NECK: Supple. CHEST: no labored breathing or tachypnea, symmetric chest rise HEART: normal pulse rate ABDOMEN: nondistended EXTREMITIES: Normal range of motion. [No edema.] SKIN: Warm, dry, no rash. NEURO: [No focal deficits]. Alert and oriented [x3.] PSYCH: [Normal mood and affect.] Course Vital Signs Vital signs: Vital Signs Pulse Rate 89 04/20/25 23:45 Respiratory Rate 16 04/20/25 23:45 Blood Pressure 145/66 H 04/20/25 23:45 Pulse Oximetry 100 04/20/25 23:45 Oxygen Delivery Room Air 04/20/25 23:45 Temperature 36.8 C 04/21/25 00:12 Pulse Rate 89 04/20/25 23:45 Respiratory Rate 16 04/20/25 23:45 Blood Pressure 145/66 H 04/20/25 23:45 Pulse Oximetry 100 04/20/25 23:45 Oxygen Delivery Room Air 04/20/25 23:45 MDM - Recheck/Abnormal Lab/Rx MDM Narrative Medical decision making narrative: 54-year-old female presenting to the emergency department today after she felt like she was having a hypoglycemic episode at home. Patient has been dealing with intermittent hypoglycemic episodes for quite some time and even had a seizure from hypoglycemic events several weeks ago. Patient states she recognized the symptoms and felt diaphoretic, having palpitations and shakes. She is quickly drank some juice and felt much better. Does not feel back to 100% baseline but did not have a true seizure or epileptic activity. Patient Does not endorse any headache, fever, chills, shortness of breath, abdominal pain. patient states she has had similar episodes in the past and thinks her endocrine system or hormonal system is off balance. She does have an coverstitch machine operator that she has not seen in over a year. Does not check her blood sugars at home. Not diabetic to her knowledge. Patient expressed frustration at her primary doctor is not working her up seriously with these complaints and did not even order an A1c during recent visit. Patient presently is drinking soda and feeling better. Ambulatory without any difficulty. No neurological complaints or deficits. No traumatic injuries. patient is overall well-appearing and not in any physical or respiratory distress. No hypertension significantly, no tachycardia, fever, hypoxemia or tachypnea. Symptoms sound consistent with a transient hypoglycemic a rent as it resolved with sugar and carb intake. Patient does not take any insulin or any supplements. She only takes CBD oil for pain but no other remedies or medications. This has happened to her previously. She does endorse eating right before bed so this could be postprandial hypoglycemia with reactionary agitated urgent response naturally to low blood sugar. Possibility of other metabolic her hormonal imbalances but overall no urgent or emergent concerns raised on exam or history. Will obtain lab work A1c and TSH level to help guide her outpatient evaluations further. Patient will be placed on monitor. Workup is unrevealing. No leukocytosis or anemia. Normal platelet count. A1c is 5.5. mildly elevated creatinine but better than previous levels. Given a L of fluid. Glucose normal 121. Normal electrolytes. TSH elevated But reflex T4 is normal so subclinical hypothyroidism. Patient is hemodynamically stable and has an unremarkable workup. Safe for discharge. Will have to follow-up with her PCP and coverstitch machine operator. Medical Records Attestation: I reviewed the patient's medical records. Lab Data Attestation: I reviewed the patient's lab results. 04/21/25 00:07 04/21/25 00:07 Labs: Lab Results 04/20/25 04/21/25 04/21/25 Range/Units 23:44 00:06 00:07 WBC 7.5 (4.5-10.0) K/mm3 RBC 4.36 (4.2-5.4) M/mm3 Hgb 13.5 (12.0-15.0) g/dL Hct 40.5 (37.0-47.0) % MCV 92.9 (80-100) fl MCH 31.0 (26-34) pg MCHC 33.3 (32-36) g/dl RDW 12.1 (11.5-14.5) % Plt Count 243 (150-375) k/mm3 MPV 9.9 (7.4-10.4) fl Immature Gran % (Auto) 0.3 (0-0.5) % Neut % (Auto) 60.6 (45.5-73.1) % Lymph % (Auto) 31.2 (18.3-44.2) % [place] % (Auto) 5.3 (2.6-8.5) % Eos % (Auto) 1.9 (0-4.4) % Baso % (Auto) 0.7 (0.2-1.2) % Lymph # (Auto) 2.35 (0.9-3.2) K/mm3 [place] # (Auto) 0.4 (0.1-0.6) K/mm3 Eos # (Auto) 0.1 (0-0.3) K/mm3 Baso # (Auto) 0.1 (0.0-0.1) K/mm3 Abs Immat Gran (auto) 0.02 (0.00-0.031) K/mm3 Absolute Neuts (auto) 4.6 (1.3-6.7) K/mm3 Absolute Nucleated RBC 0.000 (0.0-0.012) K/mm3 Nucleated RBC % 0.0 (0.0-0.2) % Sodium 140 (137-145) mmol/L Potassium 3.7 (3.4-5.0) mmol/L Chloride 101 (98-107) mmol/L Carbon Dioxide 30 (22-30) mmol/L Anion Gap 9 (4-12) mmol/L BUN 19 H (7-17) mg/dL Creatinine 1.11 H (0.7-1.0) mg/dL Estim Creat Clear Calc Not Reportable Estimated GFR 51 L (59 - ) Glucose 121 H (65-110) mg/dL POC Capillary Glucose 147 H (65-105) mg/dl Hemoglobin A1c 5.5 (<5.7) % Calcium 9.2 (8.4-10.2) mg/dL Magnesium 2.1 (1.6-2.3) mg/dL Total Bilirubin 0.3 (0.2-1.3) mg/dL AST 27 (14-36) U/L ALT 22 (6-35) U/L Alkaline Phosphatase 80 (38-126) U/L Total Protein 7.7 (6.3-8.2) g/dL Albumin 4.4 (3.5-5.1) g/dL TSH (Reflex) 7.250 H (0.465-4.68) uIU/mL Free T4 0.93 (0.78-2.19) ng/dL Total T3 0.97 (0.82-1.58) NG/ML Discharge Plan Discharge Clinical Impression: Nonspecific abnormal results of endocrine function study Patient Disposition: Home Condition: Stable Instructions: Antibiotic Form Additional Instructions: Laboratory studies showed no signs of diabetes. A1c is 5.5 and normal. TSH mildly elevated at 7.5 but reflex T4 testing is normal. no other significant derangements. Creatinine was mildly elevated 1.1 but better than previous testing last time so likely component of dehydration rather than chronic kidney disease. You will have to follow up with your primary doctor and coverstitch machine operator for further testing and repeat evaluations for your symptoms but no urgent or emergent causes for concern raised today in the emergency setting. Return with any emergencies. Patient Language: Divehi Prescriptions: No Action prednisone 20 mg tablet 40 mg PO DAILY 5 Days Qty: 10 0RF levetiracetam [Keppra] 500 mg tablet 500 mg PO BID 30 Days Qty: 60 0RF Follow-up/Referrals: UNKNOWN,DOCTOR [Non-Staff] Time of Disposition: 01:41
[2025-04-21 00:20] LABS: Hematocrit 40.5 % (37.0-47.0); Hemoglobin 13.5 g/dL (12.0-15.0); Immature Granulocyte Percent A 0.3 % (0-0.5); Lymphocytes Absolute Auto 2.35 K/mm3 (0.9-3.2); Mean Corpuscular HGB Conc 33.3 g/dl (32-36); Mean Corpuscular Hemoglobin 31.0 pg (26-34); Mean Corpuscular Volume 92.9 fl (80-100); Nucleated Red Blood Cells Absolute Auto 0.000 K/mm3 (0.0-0.012); Nucleated Red Blood Cells Perc 0.0 % (0.0-0.2); Platelet Count Result 243 k/mm3 (150-375); Red Blood Count 4.36 M/mm3 (4.2-5.4); White Blood Count 7.5 K/mm3 (4.5-10.0)
--- NOTE | 2025-04-21 00:21 | ECG_ITS ---
Test Date: 2025-04-21 00:45:15 Measurements Intervals [place] Rate: 81 P: 52 AL: 150 QRS: 60 QRSD: 84 T: 34 QT: 368 QTc: 427 Interpretive Statements SINUS RHYTHM NORMAL ELECTROCARDIOGRAM Compared to ECG 04/11/2025 02:23:11 ST (T wave) deviation no longer present Electronically Signed On 04-21-2025 07:27:12 GREETER by Kal Huizar M.D.
[2025-04-21 00:27] LABS: Alanine Aminotransferase 22 U/L (6-35); Albumin Level 4.4 g/dL (3.5-5.1); Alkaline Phosphatase 80 U/L (38-126); Anion Gap 9 mmol/L (4-12); Aspartate Amino Transferase 27 U/L (14-36); Bilirubin,Total 0.3 mg/dL (0.2-1.3); Blood Urea Nitrogen 19 mg/dL (7-17); Calcium 9.2 mg/dL (8.4-10.2); Carbon Dioxide 30 mmol/L (22-30); Chloride 101 mmol/L (98-107); Estimated Glomerular Filt Rate 51; Glucose 121 mg/dL (65-110); Magnesium 2.1 mg/dL (1.6-2.3); Potassium 3.7 mmol/L (3.4-5.0); Sodium 140 mmol/L (137-145); Total Protein 7.7 g/dL (6.3-8.2)
--- OUTSIDE RECORDS SUMMARY | 2025-04-21 00:28 | XMS_ITS | Clinical Summary ---
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 Office Visit [facility] [address] [place] [phone] Juliann Alas NP Annual physical exam (Primary Dx); Seizure (HCC); H/O reactive hypoglycemia; Menstrual changes; Symptomatic spider varicose vein; Hyperthyroidism 01/30/2025 Results Follow-Up [facility] [address] [place] [address] Juliann Alas NP Comprehensive metabolic panel, Lipid panel, Thyroid Function [place] from Last 3 Months Immunizations Immunization Administration [...] on file Legal Sex Female 12:33 AM TOOL AND GAUGE INSPECTOR Gender Identity Not on file Sexual Orientation Not on file Last Filed Vital Signs Vital Sign Reading Time Taken Comments Blood Pressure 130/82 04/16/2025 3:07 PM TOOL AND GAUGE INSPECTOR Pulse 74 04/16/2025 3:07 PM TOOL AND GAUGE INSPECTOR Temperature 36.8 C (98.2 F) 02/22/2024 2:38 PM CDT Respiratory Rate 20 04/16/2025 3:07 PM TOOL AND GAUGE INSPECTOR Oxygen Saturation 99% 04/16/2025 3:07 PM TOOL AND GAUGE INSPECTOR Inhaled Oxygen Concentration - - Weight 90.4 kg (199 lb 3.2 oz) 04/16/2025 3:07 P M TOOL AND GAUGE INSPECTOR Height 179.1 cm (5' 10.51) 04/16/2025 3:[address] Body Mass Index 28.17 04/16/2025 3:07 PM TOOL AND GAUGE INSPECTOR Plan of Treatment Health Maintenance Due Date [...] to Health Maintenance Results * Thyroid Function E[place] (01/29/2025 10:55 AM CDT) TSH 3.17 mIU/L [facility] Comment: Reference Range > or = 20 Years 0.40-4.50 Ranges First trimester 0.26-2.66 Second trimester 0.55-2.73 Third trimester 0.43-2.91 Blood 01/29/2025 10:5 5 AM CDT 01/29/2025 10:55 AM CDT Narrative [facility] - 01/30/2025 8:32 AM CDT FASTING:YES FASTING: YES Juliann Alas VICTORIAN LITERATURE PROFESSOR LAB BLOOD ORDERABLES F inal Result [facility] [address] [phone] * (ABNORMAL) Lipid panel (01/29/2025 10:55 AM [...] LDL-C. Wyatt SS et al. LANE. 2013;310(19): 7117-1465 (http://education.BRANDiD - Shop. Like a Man..[place] Self Representation Document Preparation/faq/YEL809) Chol/HDL ratio 4.2 <5.0 (calc) [facility] [...] AM CDT FASTING:YES FASTING: YES Juliann Alas VICTORIAN LITERATURE PROFESSOR LAB BLOOD ORDERABLES F inal Result [facility] [address] [address] * (ABNORMAL) Comprehensive metabolic panel (01/29/2025 10:55 AM CDT) Pathologist [facility] Glucose 89 65 - 99 mg/dL [facility] [...] ORDERABLES F inal Result [facility] [address] [phone] * SCREENING MAMMOGRAM BILATERAL W MÓNICA (01/30/2024 3:15 PM CDT) Anatomical Region Laterality Modality Breast Bilateral Mammography Juliann Alas NP IMG MAMMO PROCEDURES F inal Result * Stool DNA - Cologuard (01/07/2024 10:00 AM CDT) Stool DNA - Cologuard Negative Negative [employer] (CLIA #:[id number]) Comment: NEGATIVE TEST RESULT. A negative Cologuard [...] (Katlyn Peralta al, N Engl J Med 2014;370(14):5810-5988) The normal value (reference range) for this assay is negative. COLOGUARD RE-SCREENING RECOMMENDATION: Periodic colorectal cancer screening is an important part of preventive healthcare for asymptomatic individuals at average risk for colorectal cancer. Following a negative Cologuard result, the [place] Cancer Society and U.S. Multi-Society Task Force screening guidelines recommend a Cologuard re-screening interval of 3 years. References: [place] Cancer Society Guideline for Colorectal Cancer Screening: https://www.cancer.org/cancer/qjblr-nukreq-ispmww/mhuvhzvoa-mtbevqujj-ewjosef/ac s-rec ommendations.html.; Juanito DK, Indira CR, Shavon HernandezK, Colorectal Cancer Screening: Recommendations for Physicians and Patients from the U.S. Multi-Society Task Force on Colorectal Cancer Screening , Am J Gastroenterology 2017; 112:4430-7061. TEST DESCRIPTION: Composite algorithmic analysis of stool [...] (Katlyn Peralta al, N Engl J Med 2014;370(14):0900-9513.) Cologuard may produce a false negative or false positive result (no colorectal cancer or precancerous polyp present at colonoscopy follow up). A negative Cologuard test result does not guarantee the absence of CRC or advanced adenoma (pre-cancer). The current Cologuard screening interval is every 3 years. ([employer] Cancer Society and U.S. Multi-Society Task Force). Cologuard performance data in a 10,000 patient pivotal study using colonoscopy as the reference method can be accessed at the following location: www.iCetana.[place] Self Representation Document Preparation/results. Additional description of the Cologuard test process, warnings and precautions can be found at www.ClarityAd.com. Stool 01/07/2024 10:0 0 AM CDT 01/09/2024 9:39 AM CDT Juliann Alas NP LAB BODY FLUIDS AND ST OOLS ORDERABLES Final Result [facility] (CLIA #:[id number]) [place] [address] from Last 3 Months or Most Recently Relevant to Health Maintenance Insurance [facility] [address] HMO [facility] HMO/POS Care Teams Jockey Valet Relationship Specialty Start Date End Date Juliann Alas NP [address] [place] [address] PCP - General Family Medicine 08/11/23
--- OUTSIDE RECORDS SUMMARY | 2025-04-21 00:28 | XMS_ITS | Clinical Summary ---
Author Organization [facility] Address [address] [place] [address] Care Team Providers Care Blasting Coal Miner Name Role Phone Unavailable Primary Care Provider Unavailabl e Source Comments [facility],non-owned Affiliates and Associated Physician Practices is amultiple site organization consisting of ambulatory clinics and hospital sitesin [place], [place], [place] and [place]. This disclosure is being madepursuant to the Care Everywhere program and may not contain all information available regarding this patient. Last updated 18.[facility] Allergies No known active allergies Medications * Be aware that medications may not be up to date on this document. Alwaysverify current medications with the patient. progesterone 100 mg/gram cream 100 mg/gm CREA compound Apply to affected area once daily Reported on 07/29/2016 Active Active Problems Problem Noted Date Diagnosed Date Generalized anxiety disorder 03/24/2017 Malaise and fatigue 06/12/2015 Perimenopausal 06/12/2015 Acute bronchitis 10/28/2013 Atypical nevus 09/10/2013 Overview (10/20/2014): Annual physical exam 09/10/2013 Family History Medical History Relation Name Comments Diabetes Maternal Uncle Cancer - Breast Mother Relation Name Status Comments Maternal Uncle Mother Social History Tobacco Use Types Packs/Day Years Used Date Smoking Tobacco: Former Cigarettes 0.3 4 0 09/30/1990 - 09/30/1994 Smokeless Tobacco: Never Tobacco Cessation:Counseling Given: Yes Alcohol Use Standard Drinks/Week Comments No 0 (1 standard drink = 0.6 oz pur e alcohol) Comments No Sex and Gender Information Value Date Recorded Sex Assigned at Not on file Legal Sex Female 1:44 PM TILE DITCHER Gender Identity Not on file Sexual Orientation Not on file Last Filed Vital Signs Vital Sign Reading Time Taken Comments Blood Pressure 126/62 11/27/2018 5:44 PM CDT Pulse 83 11/27/2018 5:44 PM CDT Temperature 37.2 C (99 F) 11/27/2018 5:44 PM CDT Respiratory Rate 16 11/27/2018 5:44 PM CDT Oxygen Saturation 99% 11/27/2018 5:44 PM CDT Inhaled Oxygen Concentration - - Weight 76.3 kg (168 lb 3.2 oz) 05/05/2017 10:45 AM TILE DITCHER Height 179.1 cm (5' 10.5) 05/05/2017 10:[address] Body Mass Index 23.79 05/05/2017 10:45 AM TILE DITCHER Plan of Treatment Health Maintenance Due Date Last Done Comments COLOGUARD (AGES 45-75) - COL ON CA SCREENING 1971 COLON MONITORING 1971 COLONOSCOPY - COLON CA SCREENING 1971 CT COLONOGRAPHY - COLON CA SCREENING 1971 Colorectal Cancer Screening 1971 FIT - COLON CA SCREENING 1971 FLEX SIG - COLON CA SCREENING 1971 HIV SCREENING 1986 HEPATITIS C SCREENING 07/03/1989 DTAP/TDAP/TD VACCINES (1 - Tdap) 1990 HEPATITIS B VACCINE (1 of 3 - 19+ 3-dose series) 1990 PAP SMEAR 1992 Cervical Cancer Screening 2001 PAP with HPV 2001 MAMMOGRAM 11/02/2015 11/01/2013 PNEUMOCOCCAL VACCINE 50+ (1 of 1 - PCV) 2021 ZOSTER VACCINE (1 of 2) 2021 LIPID TESTING 03/24/2022 03/24/2017, 12/05/2013 DEPRESSION SCREENING 05/29/2024 COVID-19 VACCINE (1 - 2024-2 6 season) 2025 INFLUENZA VACCINE (#1) 2025 HIB VACCINE Aged Out No longer eligi ble based on patient's age to complete this topic HPV VACCINE Aged Out No longer eligi ble based on patient's age to complete this topic MENINGOCOCCAL (Group B) VACCINE SHARED DECISION-MAKING Aged Out No longer eligible based on patient's age to complete this topic MENINGOCOCCAL GROUPS A/C/Y/W VACCINE Aged Out No longer eligible b ased on patient's age to complete this topic Procedures Procedure Name Priority Date/Time Associated Diagnosis Comments LIPID PROFILE Routine 03/24/2017 11:36 AM CDT Malaise and fatigue MAMMO BILAT SCREENING Routine 11/01/2013 3:51 PM CDT Other screening mammogram from Last 3 Months or Most Recently Relevant to Health Maintenance Results * LIPID PROFILE (03/24/2017 11:36 AM CDT) [facility] Cholesterol 183 <200 mg/dL 03/24/2017 6:58 PM CDT [facility] Triglycerides 74 <150 mg/dL 03/24/2017 6:58 PM CDT [facility] HDL Cholesterol 58 >40 mg/dL 7 6:58 PM CDT [facility] Chol HDL Ratio 3.2 1.0 - 6.0 03/24/2017 6:58 PM CDT [facility] LDL Calculated 110 65 - 130 mg/dL 03/24/2017 6:58 PM CDT [facility] VLDL Calculated 15 10 - 40 mg/dL 03/24/2017 6:58 PM CDT [facility] Blood BLOOD SPECIMEN / Unknown Venipuncture / Unknown 03/24/2017 11:36 AM CDT 03/24/2017 11:36 AM CDT Narrative [facility] - 03/24/2017 6:58 PM CDT Lipid Profile Comment: CHOLESTEROL LEVEL..................CLINICAL INTERPRETATION LESS THAN 200 MG/DL..............................DESIRABLE 200-239 MG/DL..............................BORDERLINE HIGH GREATER THAN 240 MG/DL................................HIGH LDL-CHOLESTEROL LEVEL..............CLINICAL INTERPRETATION LESS THAN 100 MG/DL................................OPTIMAL 100-129 MG/DL.................................NEAR OPTIMAL GREATER THAN 160 MG/DL...........................HIGH RISK HDL RISK LEVEL GREATER THEN 60 MG/DL............................DECREASED 40-60 MG/DL........................................AVERAGE LESS THAN 40 MG/DL...............................INCREASED TRIGLYCERIDE LEVEL..................CLINICAL INTERPRETATION LESS THAN 150 MG/DL...............................DESIRABLE 150-199 MG/DL...............................BORDERLINE HIGH 200-499 MG/DL..........................................HIGH GREATER THAN 500..................................VERY HIGH THE NATIONAL CHOLESTEROL EDUCATION PROGRAM HAS SET THE ABOVE GUIDELINES (REFERANCE VALUES) FOR CHOLESTEROL AND HDL. RISK ASSOCIATED WITH CHOLESTEROL/HDL RATIOS RISK....................MALE RATIO.............FEMALE RATIO 1/2 AVERAGE.................<3.4.......................<3.3 LOW RISK.................... 4.0 ...................... 3.8 AVERAGE..................... 5.0 ...................... 4.5 2X AVERAGE.................. 9.5 ...................... 7.0 3X AVERAGE...................>23........................>11 us Lupillo Mckeon MD LAB - CHEMISTRY ORDERABLES Brandy l Result [facility] [address] [place], [place] [address] * JEM SCREENING DIGITAL BILATERAL (11/01/2013 3:51 PM CDT) Anatomical Region Laterality Modality Breast Bilateral Mammography 11/04/2013 1:21 PM CDT Impressions 11/04/2013 5:13 PM CDT 1. BI-RADS Category 2. 2. Annual screening mammography recommended. Additionally, patient is a candidate for screening breast MRI given parenchymal density and strong family history of breast carcinoma. A) A negative report should not delay a biopsy if a dominant or clinically suspicious mass is present. B) Adenosis and dense breasts may obscure an underlying neoplasm. C) Study interpreted with computer aided detection. MQSA BI-RADS Categories: Category 0 - needs additional imaging evaluation. Category 1 - negative. Category 2 - benign findings. Category 3 - probably benign findings, but short interval follow-up is recommended. Category 4 - suspicious abnormality and biopsy should be considered though the lesion may well be benign. Category 5 - highly suggestive of malignancy and appropriate action should be taken. Narrative 11/04/2013 5:13 PM CDT DIGITAL BILATERAL SCREENING MAMMOGRAM WITH COMPUTER AIDED DIAGNOSIS: (11/01/2013) HISTORY: Screening examination. No complaints listed referable to either breast. COMPARISON: 02/14/2007. FINDINGS: Dense nodular parenchymal pattern bilaterally. This limits sensitivity of mammography. Benign appearing nodularity in both breasts with minor benign appearing calcification. Nothing specific for malignancy in either breast. Procedure Note David Gregg MD - 11/04/2013 DIGITAL BILATERAL SCREENING MAMMOGRAM WITH COMPUTER AIDED DIAGNOSIS: (11/01/2013) HISTORY: Screening examination. No complaints listed referable to either breast. COMPARISON: 02/14/2007. FINDINGS: Dense nodular parenchymal pattern bilaterally. This limits sensitivity of mammography. Benign appearing nodularity in both breasts with minor benign appearing calcification. Nothing specific for malignancy in either breast. IMPRESSION 1. BI-RADS Category 2. 2. Annual screening mammography recommended. Additionally, patient is a candidate for screening breast MRI given parenchymal density and strong family history of breast carcinoma. A) A negative report should not delay a biopsy if a dominant or clinically suspicious mass is present. B) Adenosis and dense breasts may obscure an underlying neoplasm. C) Study interpreted with computer aided detection. MQSA BI-RADS Categories: Category 0 - needs additional imaging evaluation. Category 1 - negative. Category 2 - benign findings. Category 3 - probably benign findings, but short interval follow-up is recommended. Category 4 - suspicious abnormality and biopsy should be considered though the lesion may well be benign. Category 5 - highly suggestive of malignancy and appropriate action should be taken. Lupillo Mckeon MD MAMMO ORDERABLES Final Result from Last 3 Months or Most Recently Relevant to Health Maintenance Insurance [facility] MEDICAID
[2025-04-21 00:36] LABS: Hemoglobin A1C 5.5 % (<5.7)
[2025-04-21 01:02] LABS: Thyroid Stimulating Hormone Reflex 7.250 uIU/mL (0.465-4.68)
[2025-04-21] MEDS: LACTATED RINGERS 1,000 ML 999 ML IV CONT (01:15)
[2025-04-21 01:31] LABS: Free T4 Free Thyroxine Reflex 0.93 ng/dL (0.78-2.19)
[2025-04-21 02:20] LABS: Total Triiodothyronine (T3) 0.97 NG/ML (0.82-1.58)
== END 2025-04-21 02:28 | disposition home or self-care (01) ==
PROVIDERS: Emergency Provider Student in an Organized Health Care Education/Training Program
DX: R94.7 Abnormal results of other endocrine function studies (principal)
CPT/HCPCS: 36415; 80053; 82948; 83036; 83735; 84439; 84443; 84480; 85025; 93005; 96360; 99283; J7120